=== PATIENT | female | born 1955 | race Caucasian/White ===

== ENCOUNTER → 2020-07-15 10:54 | Outpatient (CLI) | payer OTHER | END | disposition home or self-care (01) | LOC: D.HCCECHO 10:54 | PROVIDERS: ATTEND Internal Medicine Cardiovascular Disease | DX: I20.9 Angina pectoris, unspecified (principal) ==

== ENCOUNTER 2020-08-05 06:25 | Day surgery (SDC) | payer OTHER ==
[~2020-08-05] VITALS: Ht 154.9 cm; Wt 94.1 kg
--- NOTE | ~2020-08-05 | HEMODYNAMI ---
PATIENT:HAWA LENTZ MEDICAL RECORD: [id number] : 57 LOCATION:[facility] ADMISSION DATE: 08/05/20 Generatedon:08/05/20208:14 Patient name: HAWA LENTZ Patient #: [id number] SSN: : 1955 Date of study: 08/05/2020 Page: Of Hemodynamic Procedure Report Patient Data Patient Demographics Procedure consent was obtained First Name: HAWA Gender: Female Last Name: TOR : 1955 Patient #: [id number] Age: 64 year(s) Race: Unknown Additional ID: [id number] Contact details [address]: [address] [place] [address] State: [place] City: [place] Zip code: [address] Past Medical History Allergies: No known allergies Admission Admission Data Admission Date: 08/05/2020 Admission Time: 6:25 Lab Results Lab Result Date: 08/05/2020 Lab Result Time: 0:00 Biochemistry Name Units Result Min Max BUN mg/dl 14 --(--*-)-- 7 18 Creatinine mg/dl 1.2 --(---*)-- 0.6 1.3 eGFR ml/min 48 *-(----)-- 90 120 NONAFRICAN CBC Name Units Result Min Max Hematocrit % 43.1 --(*---)-- 42 54 Hemoglobin g/dl 15 --(-*--)-- 13.5 17.5 Procedure Procedure Types Cath Procedure Diagnostic Procedure C [facility] w/Coronaries Sedation Charges Moderate Sedation up to 15 minutes Procedure Description Procedure Date Procedure Date: 08/05/2020 Procedure Start Time: 7:56 Procedure End Time: 8:13 Procedure Staff Name Function Chi Madison MD Performing Physician Vivian Michelle RN Nurse Tamanna Marc RT Scrub Teresa De La Rosa RT Monitor Procedure Data Cath Procedure Fluoroscopy Diagnostic fluoroscopy Total fluoroscopy Time: 1.5 time: 1.5 min min Diagnostic fluoroscopy Total fluoroscopy dose: 355 dose: 355 mGy mGy Contrast Material Contrast Material Type Amount (ml) Isovue 300 51 Entry Location Entry Primary Successful Side Size Upsize Upsize Entry Closure Succes sful Closure Location (Fr) 1 (Fr) 2 (Fr) Remarks Device Remarks Femoral Right 5 Fr Exoseal artery Estimated blood loss: 5 ml Diagnostic catheters Device Type Used For End Catheter Placement MULTIPACK JL 4.0 5Fr Procedure catheter MULTIPACK 3DRC 5Fr Procedure catheter MULTIPACK Pigtail 5 Fr Procedure catheter Procedure Complications No complications Procedure Medications Medication Administration Route Dosage Oxygen etCO2 Nasal cannula 2 l/min Lidocaine 2% added to field 20 Heparin Flush Bag added to field 2 bags (1000units/500ml NS) 0.9% NaCl I.V. 100 ml/hr Versed I.V. 1 mg Fentanyl I.V. 50 mcg Versed I.V. 1 mg Fentanyl I.V. 50 mcg Hemodynamics Rest Heart Rate: 32 (bpm) Pressure Samples Time Site Value (mmHg) Purpose Heart Use Rate(bpm) 8:05 LV 91/-4,18 Snapshot 56 8:05 LV 89/-6,17 Snapshot 60 Gradients Valve Time Site Site Mean SEP/DFP Peak To Heart Use 1 2 (mmHg) (sec/min) Peak Rate (mmHg) (bpm) Aortic 8:06 LV AO 59 Snapshots Pre Cath Intra NCS Post Cath Vital Signs Time Heart Resp SPO2 etCO2 NIBP (mmHg) Rhythm Pain Sedation Rate (ipm) (%) (mmHg) Status Level (bpm) 7:43:46 68 16 98 39.9 Measuring NSR 0 (11) 10(A) , No pain 7:44:14 66 19 98 36.9 118/65(101) NSR 0 (11) 10(A) , No pain 7:48:34 68 20 98 39.8 114/67(83) NSR 0 (11) 10(A) , No pain 7:52:56 66 14 92 23.3 102/61(69) NSR 0 (11) 10(A) , No pain 7:57:13 63 11 94 30.8 115/63(87) NSR 0 (11) 9(A) , No pain 8:01:31 68 10 95 47.4 103/61(85) NSR 0 (11) 9(A) , No pain 8:05:49 70 11 94 47.4 101/55(72) NSR 0 (11) 9(A) , No pain 8:09:18 67 11 95 49.6 99/55(83) NSR 0 (11) 10(A) , No pain 8:13:34 64 12 96 49.6 102/52(73) NSR 0 (11) 10(A) , No pain Medications Time Medication Route Dose Verified Delivered Reason Notes Effec tiveness by by 7:48:15 Oxygen etCO2 2 [place] used for Nasal l/min Los Michelle RN procedure cannula 7:48:43 Lidocaine 2% added 20ml Chi Chi to vial Los Madison MD field 7:48:56 Heparin Flush added 2 Chi Chi Bag to bags Los Madison MD (1000units/500ml field NS) 7:49:18 0.9% NaCl I.V. 100 Chi Buffie ml/hr Los Michelle RN 7:53:21 Versed I.V. 1 mg Chi Buffie for Los Michelle RN sedation 7:53:28 Fentanyl I.V. 50 Chi Buffie for mcg Los Michelle RN sedation 8:00:05 Versed I.V. 1 mg Chi Buffie for Los Michelle RN sedation 8:00:08 Fentanyl I.V. 50 Chi Buffie for mcg Los Michelle RN sedation Procedure Log Time Note 7:26:13 Informed consent obtained and on chart 7:27:00 Procedure Status Elective Heart Cath (OP). 7:27:01 Time tracking: Regular hours (M-F 7:00 - 5:00) 7:27:04 Plan of Care:Hemodynamics will remain stable., Cardiac rhythm will remain stable., Comfort level will be maintained., Respiratory function will remain adequate., Patient/ family verbilizes understanding of procedure., Procedure tolerated without complication., Recovers from procedure without complications.. 7:27:11 Tamanna GONGORA(R) (CV) sent for patient. Start room use. 7:31:09 Patient allergic to No known allergies 7:34:14 H&P Date Dictated: 07/21/2020 Within 30 days and on chart., H&P Addendum completed by physician on day of procedure. (MUST COMPLETE FOR ALL OUTPATIENTS). 7:41:52 Patient received from Pre/Post Procedure Room to CCL 1 Alert and oriented. Tansferred to table in Supine position. 7:41:54 Warm blankets applied, and angela hugger turned on for patient comfort. 7:41:54 Correct patient and procedure confirmed by team. 7:41:54 ECG and BP/O2 sat monitors applied to patient. 7:41:55 Vital chart was started 7:42:00 Rhythm: sinus rhythm 7:42:01 Full Disclosure recording started 7:42:01 Pre-procedure instructions explained to patient. 7:42:02 Pre-op teaching completed and patient verbalized understanding. 7:42:03 Family in patients room. 7:42:09 Patient NPO since Midnight. 7:42:18 Is patient on blood thinner?No 7:42:19 Is the patient allergic to Iodine/contrast media? No. 7:42:20 Patient diabetic? Yes. 7:42:21 If diabetic: On Metformin? No 7:42:24 Previous problem with sedation/anesthesia? No ? 7:42:25 Snore? Yes 7:42:26 Sleep apnea? No 7:42:27 Deviated septum? No 7:42:28 Opens mouth fully? Yes 7:42:29 Sticks out tongue? Yes 7:42:30 Airway obstruction? No ? 7:42:32 Dentures? No ? 7:42:34 Pre procedure: right dorsailis pedis pulse 2+ Normal; easily identifiable; not easily obliterated 7:42:48 DID NOT GO RADIAL PER DR MADISON CHOICE. 7:42:51 Patient pain scale 0/10 ?. 7:42:58 IV patent on arrival in left antecubital with 0.9% NaCl at [facility]. 7:43:26 Lab Result : Creatinine 1.2 mg/dl 7:43:26 Lab Result : BUN 14 mg/dl 7:43:26 Lab Result : eGFR NONAFRICAN 48 ml/min 7:43:26 Lab Result : Hematocrit 43.1 % 7:43:26 Lab Result : Hemoglobin 15 g/dl 7:43:31 Lab results completed and on chart. 7:43:34 Right groin area was prepped with chlora-prep and draped in sterile fashion 7:43:36 Sharps counted by scrub and verified by R.N. 7:43:38 Alarms reviewed by R. N. 7:46:08 Stress Test: yes; abnormal ANTERIOR AND APICAL 7:48:15 Oxygen 2 l/min etCO2 Nasal cannula was administered by Vivian Michelle RN; used for procedure; Verbal order read back and verified. 7:48:43 Lidocaine 2% 20ml vial added to field was administered by Chi Madison MD; ; Verbal order read back and verified. 7:48:56 Heparin Flush Bag (1000units/500ml NS) 2 bags added to field was administered by Chi Madison MD; ; Verbal order read back and verified. 7:49:18 0.9% NaCl 100 ml/hr I.V. was administered by Vivian Michelle RN; ; Verbal order read back and verified. 7:51:43 --------ALL STOP TIME OUT------ 7:51:44 Final Timeout: patient, procedure, and site verified with staff and physician. All members of the team are in agreement. 7:51:45 Right groin site verified by team. 7:51:48 Fire Safety Assessment: A--An alcohol-based skin anteseptic being used preoperatively., C--Open oxygen or nitrous oxide is being used., D--An ESU, laser, or fiber-optic light is being used. 7:51:51 Physical assessment completed. ASA score P 2 - A patient with mild systemic disease as per Chi Madison MD. 7:52:06 3a) 45-59 Moderately reduced kidney function. 7:52:09 Maximum allowable contrast dose (3.7 X eGFR X 0.75)133 ml. 7:52:13 Sedation plan: IV Moderate Sedation Medication:Versed, Fentanyl 7:53:21 Versed 1 mg I.V. was administered by Vivian Michelle RN; for sedation; Verbal order read back and verified. 7:53:28 Fentanyl 50 mcg I.V. was administered by Vivian Michelle RN; for sedation; Verbal order read back and verified. 7:55:35 Procedure started. 7:55:59 Use device set Femoral Dx 7:56:00 ACIST Syringe (86874) opened to sterile field. 7:56:00 Bag Decanter () opened to sterile field. 7:56:01 ACIST Hand Control (69715) opened to sterile field. 7:56:02 ACIST Manifold (27564) opened to sterile field. 7:56:03 Tegaderm 4 x 4 (1626W) opened to sterile field. 7:56:04 Medline Cath Pack ([id number]) opened to sterile field. 7:56:05 DIAGNOSTIC Multipack 5Fr catheter set (SK8117) opened to sterile field. 7:56:06 SHEATH 5FR Mills (KUP439) opened to sterile field. 7:56:07 EMERALD Guide Wire (471-478) opened to sterile field. 7:56:25 Local anesthetic to right femoral artery with Lidocaine 2% by Chi Madison MD.INITIAL ACCESS ONLY 7:58:05 A 5 Fr sheath was inserted into the Right Femoral artery 7:58:13 A MULTIPACK JL 4.0 5Fr catheter was advanced over the wire and used for Procedure. 8:00:00 Baseline sample Acquired. 8:00:05 Versed 1 mg I.V. was administered by Vivian Michelle RN; for sedation; Verbal order read back and verified. 8:00:08 Fentanyl 50 mcg I.V. was administered by Vivian Michelle RN; for sedation; Verbal order read back and verified. 8:00:19 LCA angiography performed. 8:01:01 Catheter exchanged over wire. 8:02:47 A MULTIPACK 3DRC 5Fr catheter was advanced over the wire and used for Procedure. 8:03:53 RCA angiography performed. 8:04:21 Catheter exchanged over wire. 8:04:49 ACCDominant side:Co-Dominant 8:04:53 A MULTIPACK Pigtail 5 Fr catheter was advanced over the wire and used for Procedure. 8:05:23 LV gram done using FROST 8:05:26 Injector settings: Ml/sec: 10, Volume: 20, 8:05:48 LV hemodynamics recorded. 8:06:02 EF : 55 % 8:06:13 Catheter removed. 8:06:15 EXOSEAL 5Fr (EX500) opened to sterile field. 8:07:43 Sheath removed intact; hemostasis achieved with Exoseal to the Right Femoral artery. 8:07:45 Procedure ended.(Physican Out) 8:07:55 Fluoroscopy time 01.50 minutes. 8::59 Flurop Dose total: 355 8::59 Fluoroscopy dose: 355 mGy 8:08:04 Dose Area Product 75778 mGy/cm. 8:08:08 Contrast amount:Isovue 300 51ml. 8:08:10 Maximum allowable dose exceeded? No. 8:08:11 Sharps counted by scrub and verified by R.N. 8:08:15 Post-op/insertion site Right Femoral artery dressed using a 4 x 4 and Tegaderm. 8:08:16 Post-procedure physical assessment completed. ASA score P 2 - A patient with mild systemic disease as per Chi Madison MD. 8:08:19 Post procedure rhythm: sinus rhythm 8:08:22 Estimated blood loss: 5 ml 8:08:23 Post procedure instruction explained to patient.Patient verbalizes understanding. 8:08:23 Patient needs reinforcement of post procedure teaching. 8:08:51 Procedure type changed to Cath procedure, Diagnostic procedure, LHC, C w/Coronaries, Sedation Charges, Moderate Sedation up to 15 minutes 8:09:40 Procedure and supply charges have been captured, reviewed, submitted and are correct. 8:09:42 Procedure Complication : No complications 8:09:45 [facility] Findings: mild to moderate CAD (<70%) 8:09:47 Operative report dictated upon procedure completion. 8:09:47 See physician's report for complete and final results. 8:09:50 Report given to Pre/Post Procedure Room. 8:09:52 Patient transfered to Pre/Post Procedure Room with Bed. 8:13:05 Vital chart was stopped 8:13:07 Procedure ended. 8:13:07 Full Disclosure recording stopped 8:13:14 End room use (Document Last) 8:13:25 End room use (Document Last) 8:13:50 End room use (Document Last) Device Usage Item Name Manufacture Quantity Catalog Hospital Part Current Minimal L ot# / Number Charge Number Stock Stock Serial# Code ACIST Acist 1 90747 [id number] 166733 262672 20 Syringe Medical (79452) Systems Inc Bag Microtek 1 499102 68239 564606 5 Decanter Medical Inc. () ACIST Hand Acist 1 98267 933194 369435 102975 5 Control Medical (52618) Systems Inc ACIST Acist 1 37346 541096 238781 821171 5 Manifold Medical (70471) Systems Inc Tegaderm 4 3M 1 1626W 515689 716857 663007 5 x 4 (1626W) Medline Medline 1 [id number] 856522 40700 528440 5 Cath Pack ([id number]) DIAGNOSTIC Cardinal 1 FF4161 602154 75401 635910 30 Multipack Backchat 5Fr catheter set (UJ7953) SHEATH 5FR Terumo 1 MVL719 027325 954661 050424 5 Mills (YXK862) EMERALD Cardinal 1 502-455 825932 446770 060115 5 Guide Wire [facility] (502-455) MULTIPACK Cardinal 1 756486 5 JL 4.0 5Fr Health catheter MULTIPACK Cardinal 1 [id number] 5 3DRC 5Fr Health catheter MULTIPACK Cardinal 1 998191 5 Pigtail 5 Health Fr catheter EXOSEAL 5Fr Cardinal 1 EX500 332443 816713 032903 10 (EX500) Health Signature Audit Tillar Stage Time Signature Unsigned Intra-Procedure 08/05/2020 Teresa De La Rosa 8:13:25 AM RT(R) Intra-Procedure 08/05/2020 Vivian Michelle RN 8:13:50 AM Intra-Procedure 08/05/2020 Chi Madison MD 8:14:15 AM [facility] [address] [place] [address]
[2020-08-05] MEDS ORDERED: METHOCARBAMOL500 MG PO (06:52)
[2020-08-05] MEDS ORDERED: KLOR-CON 1010 MEQ PO (06:53)
[2020-08-05] MEDS ORDERED: GABAPENTIN300 MG PO (06:53)
[2020-08-05] MEDS ORDERED: COREG25 MG PO (06:53)
[2020-08-05] MEDS ORDERED: COZAAR50 MG PO (06:54)
[2020-08-05] MEDS ORDERED: LEVOTHYROXINE100 MCG PO (06:54)
[2020-08-05] MEDS ORDERED: LOVASTATIN20 MG PO (06:54)
[2020-08-05] MEDS ORDERED: PROTONIX40 MG PO (06:55)
[2020-08-05] MEDS ORDERED: CHLORTHALIDONE25 MG PO (06:55)
[2020-08-05] MEDS ORDERED: BAYER CHEWABLE81 MG PO (06:55)
[2020-08-05] MEDS ORDERED: VITAMIN B-12500 MCG PO (06:56)
[2020-08-05 07:12] LABS: BASOPHILS 0.7 % (0-2); EOSINOPHILS 3.5 % (0-7); HEMATOCRIT 43.1 % (36.0-48.0); IMMATURE GRANULOCYTES 0.2 % (0-5); LYMPHOCYTES 27.2 % (15-50); MCH 33.7 pg (26.0-34.0); MCHC 34.8 g/dL (31.0-37.0); MCV 96.9 fL (80.0-100.0); MEAN PLATELET VOLUME 10.2 fL (7.4-10.4); MONOCYTES 7.9 % (2-11); NEUTROPHILS 60.5 % (40-80); PLATELET COUNT 145 10x3/uL (130-400); RBC 4.45 10x6/uL (4.00-5.40); RDW 13.4 % (11.5-14.5); WBC 4.5 10x3/uL (4.8-10.8)
[2020-08-05 07:13] VITALS: BP 108/63; Ht 154.9 cm; Wt 94.1 kg
[2020-08-05 07:26] LABS: ANION GAP 12.9 mmol/L (8-16); CALCIUM 7.9 mg/dL (8.5-10.1); CARBON DIOXIDE 26.6 mmol/L (21.0-32.0); CHOL - HDL RATIO 3.4 ratio (2.3-4.1); CREATININE - SERUM 1.2 mg/dL (0.6-1.3); LDL-HDL RATIO 1.6 ratio (1.5-3.5); POTASSIUM - SERUM 3.5 mmol/L (3.5-5.1)
--- NOTE | 2020-08-05 08:25 | NUR ---
PT ARRIVED BY STRETCHER. PLACED ON MONITORS. ASSESSMENT COMPLETED. VSS AT THIS TIME. CALL LIGHT WITHIN REACH. FAMILY AT BEDSIDE.
--- NOTE | 2020-08-05 08:40 | NUR ---
RIGHT GROIN DRESSING C/D/I. NO S/S OF HEMATOMA NOTED. CALL LIGHT WITHIN REACH. VSS. FAMILY AT BEDSIDE. RIGHT PEDAL PULSE PALPABLE.
--- NOTE | 2020-08-05 09:10 | NUR ---
RIGHT GROIN DRESSING C/D/I. NO S/S OF HEMATOMA NOTED. VSS AT THIS TIME. DR. GUTIERREZ ROUNDED AND SPOKE WITH PT AND PT'S FAMILY. THEY VOICED UNDERSTANDING.
--- NOTE | 2020-08-05 09:30 | NUR ---
RIGHT GROIN DRESSING C/D/I. NO S/S OF HEMATOAM NOTED. HEAD OF BED INC TO 30 DEGREES. TOLERATED WELL. PT DENIES NAUSEA. SET UP WITH SANDWICH TRAY AND DRINK. NO OTHER NEEDS AT THIS TIME. CALL LIGHT WITHIN REACH.
--- NOTE | 2020-08-05 10:00 | NUR ---
RIGHT GROIN DRESSING C/D/I. NO S/S OF HEMATOMA NOTED. CALL LIGHT WITHIN REACH. FAMILY AT BEDSIDE.
--- NOTE | 2020-08-05 10:10 | NUR ---
RIGHT GROIN DRESSING C/D/I. NO S/S OF HEMATOMA NOTED. PIV D/C'D WITH CATH TIP INTACT. TOLERATED WELL. PT INSTRUCTED TO GET UP AND DRESSED AT THIS TIME.
--- NOTE | 2020-08-05 10:20 | NUR ---
RIGHT GROIN DRESSING C/D/I. NO S/S OF HEMATOMA NOTED. DISCUSSED DISCHARGE INSTRUCTIONS WITH PT AND PT'S FAMILY. THEY VOICED UNDERSTANDING. PT AMBULATED TO RESTROOM AND VOIDED WITHOUT DIFFICULTY. STEADY GAIT NOTED.
--- NOTE | 2020-08-05 10:30 | NUR ---
PT TAKEN OUT TO VEHICLE BY WHEELCHAIR. NO S/S OF DISTRESS NOTED. ALL BELONGINGS AND PAPERWORK IN HAND.
== END 2020-08-05 10:30 | disposition home or self-care (01) ==
LOC: D.CATH 06:25
PROVIDERS: ATTEND Internal Medicine Cardiovascular Disease
DX: I20.9 Angina pectoris, unspecified (principal); R94.39 Abnormal result of other cardiovascular function study; R07.9 Chest pain, unspecified

== ENCOUNTER 2021-03-21 11:00 | Outpatient (CLI) | payer OTHER ==
[2020-08-05 07:13] VITALS: BMI 39.2
[~2021-03-21 11:00] MED LIST: BAYER CHEWABLE81 MG PO; CHLORTHALIDONE25 MG PO; COREG25 MG PO; COZAAR50 MG PO; GABAPENTIN300 MG PO; KLOR-CON 1010 MEQ PO; LEVOTHYROXINE100 MCG PO; LOVASTATIN20 MG PO; METHOCARBAMOL500 MG PO; PROTONIX40 MG PO; VITAMIN B-12500 MCG PO
== END 2021-03-21 23:59 | disposition home or self-care (01) ==
LOC: D.MAMMO 11:00
PROVIDERS: ATTEND Family Medicine
DX: Z12.31 Encounter for screening mammogram for malignant neoplasm of breast (principal)